=== PATIENT | male | born 1985 | race Caucasian/White ===

== ENCOUNTER 2023-06-24 12:36 | Emergency (ER) | payer MEDICAID ==
[~2023-06-24] VITALS: Ht 175.3 cm; Wt 75.0 kg
[2023-06-24 12:47] VITALS: TEMP 98.3; O2SAT 97
[2023-06-24 15:00] VITALS: BP 126/80; PULSE 85; RESP 18
[2023-06-24] MEDS ORDERED: DEXAMETHASONE 4MG/ML 1ML VIAL IM ONE (15:00)
[2023-06-24] MEDS ORDERED: KETOROLAC 60MG/2ML VIAL IM ONE (15:00)
[2023-06-24] MEDS ORDERED: AMOX250T MT (17:20)
[2023-06-25] MEDS ORDERED: NAPR-681 PO (11:52)
[2023-06-25] MEDS ORDERED: CYCL5TAB PO (11:52)
== END 2023-06-24 15:21 | disposition home or self-care (01) ==
LOC: ER 12:36
DX: J02.0 Streptococcal pharyngitis (principal)
CPT/HCPCS: 87430; 70360; 96372; 99284; J1100; J1885; Z7610

== ENCOUNTER 2023-06-25 10:40 | Emergency (ER) | payer MEDICAID ==
[~2023-06-25] VITALS: Ht 175.3 cm; Wt 82.0 kg
[~2023-06-25 10:40] MED LIST: AMOX250T MT
[2023-06-25 10:51] VITALS: BP 130/92; PULSE 113; RESP 18; TEMP 98.3; O2SAT 100
[2023-06-25] MEDS ORDERED: CYCL5TAB PO (11:52)
[2023-06-25] MEDS ORDERED: NAPR-681 PO (11:52)
== END 2023-06-25 12:03 | disposition home or self-care (01) ==
LOC: ER 10:40
DX: S39.012A Strain of muscle, fascia and tendon of lower back, initial encounter (principal); V43.52XA Car driver injured in collision with other type car in traffic accident, initial encounter; Y93.89 Activity, other specified; Y92.89 Other specified places as the place of occurrence of the external cause; Y99.8 Other external cause status
CPT/HCPCS: 99283